=== PATIENT | female | born 1950 | race Caucasian/White ===

== ENCOUNTER 2016-12-05 12:50 | Inpatient (IN) | payer OTHER, MEDICARE ==
[2016-12-04 11:50] VITALS: BMI 30.0
[2016-12-04 20:30] VITALS: BP 146/80; PULSE 75; RESP 18
[2016-12-05] VITALS (18 sets, daily range): BP systolic 100–140; BP diastolic 63–83; PULSE 74–92; RESP 13–33; Ht 170.2 cm; Wt 90.1 kg
[~2016-12-05] VITALS: Ht 170.2 cm; Wt 90.1 kg
[2016-12-05] MEDS ORDERED: LEVO75TA5 PO (13:33)
[2016-12-05] MEDS ORDERED: LYR75 PO (13:33)
[2016-12-05] MEDS ORDERED: LOSA25TA5 PO (13:34)
[2016-12-05] MEDS ORDERED: LEFL20TA18 PO (13:35)
[2016-12-05] MEDS ORDERED: DEXA0.5T PO (13:36)
[2016-12-05] MEDS ORDERED: METO2.5T12 PO (13:37)
[2016-12-05] MEDS ORDERED: FURO20TA PO (13:38)
[2016-12-05] MEDS ORDERED: CLON-379 PO (13:38)
[2016-12-05] MEDS ORDERED: HYDROmorphONE 1 MG/ML SYG IV STA (13:39)
[2016-12-05] MEDS ORDERED: REMI IV (13:39)
[2016-12-05] MEDS ORDERED: GABA300C16 PO (13:40)
[2016-12-05] MEDS ORDERED: HYDR4TAB18 PO (13:41)
[2016-12-05] MEDS ORDERED: CYCL-319 PO (13:42)
[2016-12-05] MEDS ORDERED: ROPI0.5T2 PO (13:43)
[2016-12-05] MEDS ORDERED: GLUC-137 PO (13:44)
[2016-12-05] MEDS ORDERED: CALC-267 PO (13:46)
[2016-12-05] MEDS ORDERED: MAGN400C PO (13:48)
[2016-12-05] MEDS ORDERED: CHOL100062 PO (13:49)
[2016-12-05] MEDS ORDERED: GLUC15002 PO (13:49)
[2016-12-05] MEDS ORDERED: MULT-853 PO (13:50)
[2016-12-05] MEDS ORDERED: BUPIVACAINE 0.25%/EPI (SDV) 30 ML INJ ONE (14:26)
[2016-12-05] MEDS ORDERED: POLYMYXIN/BACITRACIN 1L IRRIG ONE (14:26)
[2016-12-05] MEDS ORDERED: SURGIFOAM POWDER 1 GM KIT ONE (14:26)
[2016-12-05] MEDS ORDERED: CA CHLORIDE 10% 10 ML SYRINGE ONE (14:26)
[2016-12-05] MEDS ORDERED: THROMBIN 5000 UNIT VIAL ONE ×2 (14:26→16:53)
--- NOTE | 2016-12-05 15:04 | HPN ---
Date/Time of Note Date/Time of Note DATE: 12/05/16 TIME: 15:04 Interval H&P Admission Note Pt. seen H&P reviewed: No system changes DONAVAN HUBBARD MD Dec 05, 2016 15:04
[2016-12-05] MEDS ORDERED: HYDROmorphONE 0.2 MG/ML PCA IV SCH (15:30)
[2016-12-05] MEDS ORDERED: DIPHENHYDRAMINE 25 MG CAP PO PRN (15:30)
[2016-12-05] MEDS ORDERED: AL HYDROX/MG HYDROX/SIMETH 30 ML CUP PO PRN (15:30)
[2016-12-05] MEDS ORDERED: ACETAMINOPHEN 325 MG TAB PO PRN (15:30)
[2016-12-05] MEDS ORDERED: CEPASTAT LOZENGE MT PRN (15:30)
[2016-12-05] MEDS ORDERED: CYCLOBENZAPRINE 10 MG TAB PO PRN ×2 (15:30→21:58)
[2016-12-05] MEDS ORDERED: HYDROmorphONE 1 MG/ML SYG IV PRN (15:30)
[2016-12-05] MEDS ORDERED: BISACODYL 10 MG SUPP PR PRN (15:30)
[2016-12-05] MEDS ORDERED: DIPHENHYDRAMINE 50 MG INJ IV PRN ×2 (15:30→17:00)
[2016-12-05] MEDS ORDERED: ONDANSETRON 4 MG INJ IV PRN ×2 (15:30→17:00)
[2016-12-05] MEDS ORDERED: NALOXONE (0.4 MG/ML) INJ IV PRN (15:30)
[2016-12-05] MEDS ORDERED: PROPOFOL 20 ML ONE (15:36)
[2016-12-05] MEDS ORDERED: SUCCINYLCHOLINE CHLORIDE 100 MG/5 ML SYG IV ONE (15:36)
[2016-12-05] MEDS ORDERED: LIDOCAINE 2% (SDV) 5 ML INJ ONE (15:36)
[2016-12-05] MEDS ORDERED: ROCURONIUM 50 MG INJ ONE (15:36)
[2016-12-05] MEDS ORDERED: MIDAZOLAM 1 MG/ML 2 ML INJ ONE (15:36)
[2016-12-05] MEDS ORDERED: PHENYLephrine (100 MCG/ML) 5ML SYG ONE ×2 (15:47→16:11)
[2016-12-05] MEDS: CEFAZOLIN 1 GM/50 ML (PMX) 50 ML IVPB SCH ×2 (15:48→22:52)
[2016-12-05] MEDS ORDERED: ONDANSETRON 4 MG INJ ONE (16:06)
[2016-12-05] MEDS ORDERED: DEXAMETHASONE 4 MG/ML 1 ML INJ ONE ×2 (16:06→17:55)
[2016-12-05] MEDS ORDERED: FAMOTIDINE 20 MG INJ ONE (16:06)
[2016-12-05] MEDS ORDERED: GELATIN SIZE 100 SPONGE ONE (16:52)
[2016-12-05] MEDS ORDERED: HYDROmorphONE (0.2 MG/ML) 10ML SYG IV PRN ×3 (17:00)
[2016-12-05] MEDS ORDERED: MEPERIDINE 25 MG INJ IV PRN (17:00)
[2016-12-05] MEDS ORDERED: PROCHLORPERAZINE 10 MG INJ IV PRN (17:00)
[2016-12-05] MEDS ORDERED: FENTAnyl 50 MCG/ML VIAL IV PRN ×2 (17:00)
--- NOTE | 2016-12-05 17:22 | RADRPT ---
PROCEDURE: XR Lumbar Spine one view. CLINICAL INDICATION: Low back pain. Intraoperative. TECHNIQUE: Prone portable cross-table lateral. COMPARISON: No prior studies are available for comparison. FINDINGS: For the purposes of this report, the last apparent true disc level is considered to be L5-S1. Based on this, the posterior needle marker is are present at L5 and S2. In addition, pedicle screws are present at L4 and L5. IMPRESSION: 1. Intraoperative imaging as described above. RPTAT: QQ .Ildefonso Soto MD, MD Date Time Electronically viewed and signed by .Ildefonso Soto MD, on 12/05/2016 17:22 .R/
--- NOTE | 2016-12-05 17:23 | RADRPT ---
PROCEDURE: XR Lumbar Spine one view. CLINICAL INDICATION: Low back pain. Intraoperative. TECHNIQUE: Prone portable cross-table lateral. COMPARISON: Prior study done earlier the same day. FINDINGS: For the purposes of this report, the last apparent true disc level is considered to be L5-S1. Based on this, the posterior surgical instrument is present overlying the L5-S1 level. In addition, pedic le screws are present at L4 and L5. IMPRESSION: 1. Intraoperative imaging as described above. RPTAT: QQ .Ildefonso Soto MD, MD Date Time Electronically viewed and signed by .Ildefonso Soto MD, MD on 12/05/2016 17:22 .R/
[2016-12-05] MEDS ORDERED: FENTAnyl 50 MCG/ML VIAL ONE ×2 (17:27→17:50)
[2016-12-05] MEDS ORDERED: TRIAMCINOLONE ACET 40 MG/ML INJ ONE (17:40)
[2016-12-05] MEDS ORDERED: HYDROmorphONE 2 MG/ML SYG ONE (17:45)
[2016-12-05] MEDS ORDERED: ESMOLOL 10 ML ONE (17:46)
[2016-12-05] MEDS ORDERED: NEOSTIGMINE 3 MG/3 ML SYRINGE ONE (18:11)
[2016-12-05] MEDS ORDERED: GLYCOPYRROLATE 1 MG INJ ONE (18:11)
[2016-12-05] MEDS ORDERED: BACITRACIN 0.9 GM OINT ONE (18:34)
[2016-12-05] MEDS: FENTAnyl 50 MCG/ML VIAL IV PRN ×2 (19:14→19:28)
[2016-12-05] MEDS: D5W-0.45 NACL + KCL 20 MEQ 1,000 ML IV SCH (21:27)
[2016-12-05] MEDS: PREGABALIN 75 MG CAP PO SCH (22:22)
[2016-12-05] MEDS: DOCUSATE SODIUM 100 MG CAP PO SCH (22:22)
[2016-12-05] MEDS ORDERED: ROPINIROLE 0.25 MG TAB PO SCH (22:30)
[2016-12-05] MEDS ORDERED: LOSARTAN 25 MG TAB PO SCH (22:30)
[2016-12-05] MEDS ORDERED: GABAPENTIN 300 MG CAP PO SCH (22:30)
--- NOTE | 2016-12-05 23:49 | OPR ---
DATE OF OPERATION: 12/05/2016 PREOPERATIVE DIAGNOSES: 1. History of L4-5 fusion. 2. L5-S1 disk herniation with inferior migration. 3. Radiculopathy and weakness. POSTOPERATIVE DIAGNOSES: 1. History of L4-5 fusion. 2. L5-S1 disk herniation with inferior migration. 3. Radiculopathy and weakness. OPERATION PERFORMED 1. Left L5 hemilaminotomy. 2. Left S1 hemilaminotomy. 3. Left L5-S1 microdiskectomy. 4. Lateral localizing film x2. 5. Use of operative microscope. 6. Intraoperative neuro monitoring (2 hours). 7. Epidural injection via catheter. PRIMARY SURGEON: Avinash Lane MD LEAD BURNER SUPERVISOR: WILLIS Carty NEED FOR RESIDENTIAL REAL ESTATE AGENT: During this spinal surgical procedure, my insurance administrative assistant was used to retrac t and protect the spinal nerves and dural sac. My insurance administrative assistant also employed the suction catheters to evacuate blood from the surgical field to improve visualization of the neural structures. The kristen tant was medically necessary to facilitate the completion of the surgery in a safe and expeditious lora. State of [place] regulations, as well as hospital bylaws, preclude the use of non-license d health care personnel, such as operating room technicians, to perform these functions. FINDINGS: Neuromonitoring at the start of the case revealed left L5 amplitude down 30%, left S1 amp litude down 50%. At the end of the case, nerve signals returned to normal. The patient had a herni ated disk. This had migrated inferior to the S1 pedicle and was within the axilla. The disk materi al itself looked like disintegrated disk and possibly some posterior S1 bone. ESTIMATED BLOOD LOSS: Less than 40 mL DRAINS: None. SPECIMENS: Disk was sent to pathology. COMPLICATIONS OF PROCEDURES: None. ANESTHESIOLOGIST: Dr. Zee Live TYPE OF ANESTHESIA: General. INDICATIONS FOR PROCEDURE: This is a 66-year-old female with lumbosacral radiculopathy in the setti ng of disk extrusion. She had failed nonoperative measures, therefore, I recommended proceeding wit h the above-mentioned surgery. Preoperatively, we discussed the risks, benefits, and alternatives. She understood and wished to proceed. DESCRIPTION OF PROCEDURE IN DETAIL: The patient was identified in the preoperative holding area, [facility], taken to the operating room, where she was successfully placed under general a nesthesia by Dr. Live. Neuromonitoring leads were placed, sequential compressive devices were appli ed. Neuromonitoring was utilized during the procedure for 2 hours to include SSEP, MEP, and EMG. T his was performed by [employer]. Start time was 4:00 p.m.; closure time was 6:00 p.m. The patient was placed in downward turned prone position over a Luke frame. All bony prominences were well padded. The back was prepped and draped in usual sterile fashion. Spinal needles were pl aced to confirm the correct levels. Next, I took a lateral film. I then injected the skin, subcuta neous tissue, and paraspinal musculature with 0.25% Marcaine and epinephrine. Incision was then mad e over the L5-S1 level. Incision was taken down to the dorsal fascia, which was incised with Bovie cautery. I then subperiosteally dissected the left L5 and S1 lamina. The Alejandra retractor was plac ed, and the Kerrison was placed in what was felt to be the L5 lamina and repeat lateral films obtain ed to confirm the correct levels. Once this was confirmed, the microscope was brought in. A left-s ided hemilaminotomy was performed at L5. A left-sided hemilaminotomy was performed at S1. This hem ilaminotomy at S1 was beyond what was required in order to perform a diskectomy as the herniation mi grated inferior to the S1 pedicle and therefore went down to the level below; therefore, the hemilam inotomy had to be performed at both levels. I removed the ligamentum flavum. I identified the S1 n erve root past the pedicle of S1. Once this was done, I identified the axilla. Here, I found a her niated disk. I made an incision through the wall of the herniation in the axilla. Here, I encounte red disintegrated disk which almost looked like ground up bone. I curetted this out and used suctio n to remove this. I spent at least an hour in order to make sure that this was completely cleaned o ut. This had extended beyond midline to the right side, which I worked on. I did a thorough diskec andrew here until I saw the back of the S1 vertebral body. Next, I identified the annulus and my assi stant retracted the neural elements medially. I then made an annulotomy and did further diskectomy work. Again, I spent quite a bit of time making sure the nerve root was completely free, and once t his was done, nerve signals returned to normal. I then irrigated the wound copiously. Hemostasis a chieved with FloSeal and bipolar cautery and Gelfoam and thrombin. The wound was irrigated again. The Valsalva maneuver was performed, and there was no leak of CSF. Due to the herniation and the complexity of the case, an additional hour of surgical time was requir ed in order to complete the procedure. Next, I passed an epidural catheter through which I injected 100 mcg of fentanyl. I then injected 0 .5 mL of Kenalog 40 on to the nerve root given the significant manipulation that I performed. I the n had the anesthesiologist draw peripheral blood, and the blood was spun down using the [employer] ice. I then took the platelet-poor plasma and mixed this with thrombin and injected this over the d ura for hemostatic purposes. The retractors were removed. I closed the deep fascia with #1 Vicryl stitch. I closed the subcutaneous tissue with a 2-0 Vicryl stitch. A 4-0 Monocryl closure was then performed. Dermabond was then applied. The patient was then awakened from anesthesia and taken to the recovery room in stable condition. Lap, sponges, and instrument counts were correct x2. There were no apparent complications during the procedure. The patient will be admitted to the [facility] for routine postoperative care to include pain c ontrol, neurovascular checks, antibiotics, and physical therapy. Dictated By: AVINASH AMAYA/ISHAN Conf#: [id number] DID#: [id number] CC: HELIO PICKARD;*EndCC*
[2016-12-06 00:01] VITALS: BP 149/70; PULSE 81; RESP 18
[2016-12-06 01:00] VITALS: BP 135/72; PULSE 78; RESP 18
[2016-12-06] MEDS: D5W-0.45 NACL + KCL 20 MEQ 1,000 ML IV SCH ×2 (01:04→06:31)
[2016-12-06 05:59] VITALS: BP 123/69; PULSE 73; RESP 18
[2016-12-06] MEDS ORDERED: PANTOPRAZOLE 40 MG INJ IV SCH (06:00)
[2016-12-06] MEDS: CEFAZOLIN 1 GM/50 ML (PMX) 50 ML IVPB SCH (06:31)
[2016-12-06] MEDS ORDERED: LEVOTHYROXINE 75 MCG TAB PO SCH (07:00)
[2016-12-06 07:54] VITALS: BP 113/63; RESP 18
[2016-12-06] MEDS ORDERED: LEFLUNOMIDE 10 MG TAB PO SCH (09:00)
[2016-12-06] MEDS ORDERED: MAGNESIUM OXIDE 400 MG TAB PO SCH (09:00)
[2016-12-06] MEDS ORDERED: FUROSEMIDE 20 MG TAB PO SCH (09:00)
[2016-12-06] MEDS ORDERED: MULTIVITAMINS THERAPEUTIC TAB PO SCH (09:00)
[2016-12-06] MEDS ORDERED: CHOLECALCIFEROL 1,000 UNIT TAB PO SCH (09:00)
[2016-12-06] MEDS ORDERED: METOLAZONE 2.5 MG TAB PO SCH (09:00)
[2016-12-06 09:22] LABS: BASOPHILS % 0.2 % (0.0-2.0); HEMATOCRIT 36.6 % (37.0-47.0); LYMPHOCYTES # 1.3 10^3/ul (0.8-2.9); LYMPHOCYTES % 12.8 % (15.0-51.0); MEAN CORPUSCULAR HEMOGLOBIN 30.2 pg (29.0-33.0); MEAN CORPUSCULAR HGB CONC 32.9 g/dl (32.0-37.0); MEAN CORPUSCULAR VOLUME 91.9 fl (82.0-101.0); MEAN PLATELET VOLUME 7.5 fl (7.4-10.4); MONOCYTE # 0.4 10^3/ul (0.3-0.9); MONOCYTES % 3.9 % (0.0-11.0); NEUTROPHIL # 8.7 10^3/ul (1.6-7.5); NEUTROPHILS % 83.1 % (39.0-77.0); PLATELET COUNT 243 10^3/UL (140-440); RED BLOOD COUNT 3.98 10^6/ul (4.20-5.40); RED CELL DISTRIBUTION WIDTH 14.3 % (11.5-14.5); UNCORRECTED WBC 10.5 10^3/ul (4.8-10.8); WHITE BLOOD COUNT 10.5 10^3/ul (4.8-10.8)
[2016-12-06 09:27] LABS: CONDITION 1
[2016-12-06 09:32] LABS: POTASSIUM 4.6 mmol/L (3.5-5.1)
[2016-12-06 09:34] LABS: ALBUMIN/GLOBULIN RATIO 1.03; BILIRUBIN,INDIRECT 0.1 mg/dl (0-1.1); BILIRUBIN,TOTAL 0.1 mg/dl (0.2-1.3); CREATININE 0.68 mg/dl (0.44-1.00); TOTAL PROTEIN 5.9 g/dl (6.1-8.1)
[2016-12-06 09:35] LABS: CALCIUM 8.6 mg/dl (8.4-10.2); MAGNESIUM 2.1 mg/dl (1.7-2.5)
--- NOTE | 2016-12-06 09:36 | CONS ---
DATE OF ADMISSION: 12/05/2016 DATE OF CONSULTATION: MEDICAL CONSULTATION Thank you, Dr. Lane, for asking me to participate in the medical management of this patient. REASON FOR CONSULTATION: To manage the patient's rheumatoid arthritis, hypertension, and peripheral neuropathy. HISTORY OF PRESENT ILLNESS: This 66-year-old female was having low back pain with radiation down he r left leg. The patient had undergone a fusion surgery in 2011. She was having pain with weakness since early October 2016. She underwent surgery yesterday by Dr. Lane which included a left L 5 hemilaminectomy, left S1 hemilaminectomy, and a left L5-S1 microdiskectomy. The patient tolerated the procedure well. The patient now says that the pain in her left leg is gone. PAST MEDICAL HISTORY: The patient has the following past medical history 1. Autoimmune disorder. 2. Back pain. 3. Rheumatoid arthritis. 4. Hypertension. 5. Peripheral neuropathy. CURRENT MEDICATIONS: Include the following 1. Lyrica 75 mg twice a day. 2. Levothyroxine 75 mcg a day. 3. Losartan 25 mg once a day. 4. Leucinimide 20 mg twice a day. 5. Clonidine 0.1 p.r.n. high blood pressure. 6. She does take supplements. ALLERGIES: 1. TALWIN. 2. PERCODAN 3. PERCOCET. PAST SURGICAL HISTORY: Remarkable for L4-L5 decompression surgery in 2011, left ACL surgery, hyster ectomy, right hand surgery, kidney reconstruction on the right, tonsillectomy, right foot fusion selam roberto. SOCIAL HISTORY: The patient is retired and . She is a homemaker. She does drink alcohol so cially. PHYSICAL EXAMINATION: GENERAL: At this time reveals a well-developed female in no apparent distress. VITAL SIGNS: Temperature 97.9, pulse of 76, respirations 18, blood pressure 113/63, O2 saturation 9 7% on 2 liter nasal cannula. HEENT: Head normocephalic. EYES: Extraocular muscles intact. NOSE AND MOUTH: Normal. NECK: Supple. No neck vein distention. LUNGS: Clear to auscultation. HEART: Regular rhythm. No murmurs, gallops, or rubs. ABDOMEN: Soft, nontender. EXTREMITIES: No peripheral edema. IMPRESSION: This patient is now 1 day postoperative surgery. She is feeling well. She does have a history of hypertension; however, her blood pressure is under good control at this time. I will ma nage the patient's hypertension, rheumatoid arthritis, and peripheral neuropathy. PLAN: 1. Resume some routine medications. 2. Check labs today. 3. Postop lumbar spine surgery protocol. 4. I will follow the patient along with you medically. Dictated By: NEVILLE MATTHEW MD, ND/ISHAN Conf#: [id number] DID#: [id number]
[2016-12-06] MEDS: DOCUSATE SODIUM 100 MG CAP PO SCH (09:49)
[2016-12-06] MEDS: PREGABALIN 75 MG CAP PO SCH (09:50)
[2016-12-06] MEDS: HYDROmorphONE 4 MG TAB PO PRN ×2 (09:51→14:37)
--- NOTE | 2016-12-06 17:02 | DS ---
DATE OF ADMISSION: 12/05/2016 DATE OF DISCHARGE: 12/06/2016 ADMITTING DIAGNOSIS: Disk herniation. DISCHARGE DIAGNOSIS: Disk herniation. PROCEDURE: Patient taken to the operating room on 12/05/2016 and underwent lumbar diskectomy. HOSPITAL COURSE: The patient was admitted [facility] after undergoing above procedure. Her postoperative course was uncomplicated. By postoperative day 1, she was deemed stable for discharg e with followup arranged with the undersigned. Dictated By: DONAVAN AMAYA/ISHAN Conf#: [id number] DID#: [id number]
[2016-12-06] MEDS ORDERED: LOSARTAN 25 MG TAB PO SCH (21:00)
[2016-12-06] MEDS ORDERED: ROPINIROLE 0.25 MG TAB PO SCH ×2 (21:00)
[2016-12-07] MEDS ORDERED: PANTOPRAZOLE (EC) 40 MG TAB PO SCH (06:00)
== END 2016-12-06 15:35 | disposition home or self-care (01) | DRG 520 ==
LOC: REC 12:50 → MS1 20:28
PROVIDERS: ADMIT Specialist; ATTEND Specialist
PROC: 0SB40ZZ Excision of Lumbosacral Disc, Open Approach (ICD-10-PCS; principal; 2016-12-05 15:30)
DX: M51.17 Intervertebral disc disorders with radiculopathy, lumbosacral region (principal); G62.9 Polyneuropathy, unspecified; I10 Essential (primary) hypertension; M06.9 Rheumatoid arthritis, unspecified; E03.9 Hypothyroidism, unspecified; Z98.1 Arthrodesis status
CPT/HCPCS: 72020; 80053; 83735; 85025; 86999; 97116; 97162; 97530; C9113; J0330; J0690; J1100; J1170; J2250; J2370; J2405; J2710; J3010; J3301; J3480

== ENCOUNTER 2017-04-15 08:20 | Inpatient (IN) | payer MEDICARE, OTHER ==
[~2017-04-15] VITALS: Ht 170.2 cm; Wt 81.9 kg
[2017-04-15] VITALS (33 sets, daily range): BP systolic 96–142; BP diastolic 66–96; PULSE 69–102; RESP 7–28; Ht 170.2 cm; Wt 81.9 kg
[~2017-04-15 08:20] MED LIST: BUPIVACAINE 0.25%/EPI (SDV) 30 ML INJ INJ ONE; CALC-267 PO; CEFAZOLIN 1 GM INJ ONE; CHOL100062 PO; CLON-379 PO; CYCL-319 PO; DEXA0.5T PO; FURO-110 PO; GABA300C16 PO; GLUC-137 PO; GLUC15002 PO; HYDR4TAB18 PO; LEFL20TA18 PO; LEVO75TA5 PO; LOSA25TA5 PO; LYR75 PO; MAGN400C PO; METO2.5T12 PO; METOPROLOL 5 MG INJ ONE; MULT-853 PO; POLYMYXIN/BACITRACIN 1L IRRIG IRR ONE; REMI IV; ROPI0.5T2 PO; THROMBIN 5000 UNIT VIAL TOP ONE
[2017-04-15] MEDS ORDERED: ROPI1TAB PO (08:59)
[2017-04-15] MEDS ORDERED: RIVA15TA PO (09:00)
[2017-04-15] MEDS ORDERED: FISH400C2 PO (09:01)
[2017-04-15] MEDS ORDERED: DOCU-144 PO (09:01)
[2017-04-15] MEDS: HYDROmorphONE 1 MG/ML SYG IV PRN ×2 (09:41→11:13)
[2017-04-15] MEDS ORDERED: CEFAZOLIN 2 GM/50 ML (PMX) 50 ML IVPB ONE (10:30)
[2017-04-15] MEDS ORDERED: LACTATED RINGER'S 1,000 ML IV* ONE (10:30)
--- NOTE | 2017-04-15 13:09 | HPN ---
Date/Time of Note Date/Time of Note DATE: 04/15/17 TIME: 13:09 Interval H&P Admission Note Pt. seen H&P reviewed: No system changes HELIO PICKARD PA-C April 15, 2017 13:09
[2017-04-15] MEDS ORDERED: SURGIFOAM POWDER 1 GM KIT ONE (13:12)
[2017-04-15] MEDS ORDERED: THROMBIN 5000 UNIT VIAL ONE (13:13)
[2017-04-15] MEDS ORDERED: BUPIVACAINE 0.25%/EPI (SDV) 30 ML INJ ONE (13:13)
[2017-04-15] MEDS ORDERED: HEPARIN 1000 UNITS/ML 10 ML INJ ONE (13:14)
[2017-04-15] MEDS ORDERED: HYDROmorphONE 1 MG/ML SYG IV PRN (13:30)
[2017-04-15] MEDS ORDERED: ACETAMINOPHEN 325 MG TAB PO PRN (13:30)
[2017-04-15] MEDS ORDERED: CEPASTAT LOZENGE MT PRN (13:30)
[2017-04-15] MEDS: CEFAZOLIN 1 GM/50 ML (PMX) 50 ML IVPB SCH ×2 (13:30→21:33)
[2017-04-15] MEDS ORDERED: BISACODYL 10 MG SUPP PR PRN (13:30)
[2017-04-15] MEDS ORDERED: AL HYDROX/MG HYDROX/SIMETH 30 ML CUP PO PRN (13:30)
[2017-04-15] MEDS ORDERED: NALOXONE (0.4 MG/ML) INJ IV PRN (13:30)
[2017-04-15] MEDS ORDERED: ONDANSETRON 4 MG INJ IV PRN ×2 (13:30→15:30)
[2017-04-15] MEDS ORDERED: ZOLPIDEM 5 MG TAB PO PRN (13:30)
[2017-04-15] MEDS ORDERED: DIPHENHYDRAMINE 50 MG INJ IV PRN ×2 (13:30→15:30)
[2017-04-15] MEDS ORDERED: CYCLOBENZAPRINE 10 MG TAB PO PRN (13:30)
[2017-04-15] MEDS ORDERED: MIDAZOLAM 1 MG/ML 2 ML INJ ONE (13:48)
[2017-04-15] MEDS ORDERED: PHENYLephrine (100 MCG/ML) 5ML SYG ONE ×2 (13:52→16:05)
[2017-04-15] MEDS ORDERED: GELATIN SIZE 100 SPONGE ONE (14:35)
[2017-04-15] MEDS ORDERED: LABETALOL HCL 20MG INJ IV PRN (15:30)
[2017-04-15] MEDS ORDERED: MEPERIDINE 25 MG INJ IV PRN (15:30)
[2017-04-15] MEDS ORDERED: hydrALAzine 20 MG INJ IV PRN (15:30)
[2017-04-15] MEDS ORDERED: FENTAnyl 50 MCG/ML VIAL IV PRN (15:30)
[2017-04-15] MEDS ORDERED: HYDROmorphONE (0.2 MG/ML) 10ML SYG IV PRN ×2 (15:30)
[2017-04-15] MEDS ORDERED: CEFAZOLIN 1 GM INJ ONE (15:39)
[2017-04-15] MEDS ORDERED: LIDOCAINE 2% (SDV) 5 ML INJ ONE (16:30)
[2017-04-15] MEDS ORDERED: ETOMIDATE 20 MG INJ ONE (16:30)
[2017-04-15] MEDS ORDERED: ROCURONIUM 50 MG INJ ONE (16:30)
[2017-04-15] MEDS ORDERED: NEOSTIGMINE 3 MG/3 ML SYRINGE ONE (16:31)
[2017-04-15] MEDS ORDERED: ONDANSETRON 4 MG INJ ONE (16:31)
[2017-04-15] MEDS ORDERED: GLYCOPYRROLATE 1 MG INJ ONE (16:31)
--- NOTE | 2017-04-15 16:36 | RADRPT ---
PROCEDURE: X-ray fluoroscopy guidance CLINICAL INDICATION: L-SPINE IN SURGERY TECHNIQUE: Fluoroscopic guidance was utilized for intraoperative procedure. COMPARISON: None. FINDINGS: Fluoroscopic guidance was utilized for intraoperative procedure. 0.1 minute of fluoroscopy time was utilized for the procedure. 3 x-ray images were obtained during the procedure. Spinal fusion hardware and intervening disk spacers are identified. No abnormal radiopaque foreign bodies are identified. IMPRESSION: X-ray fluoroscopic guidance utilized for intraoperative procedure. No abnormal radiopaque foreign bodies are identified. Please see procedure note details. RPTAT: EE Physician Rob Date Time Electronically viewed and signed by Physician oRb on 04/15/2017 16:35 RA/
[2017-04-15] MEDS ORDERED: DEXAMETHASONE 4 MG/ML 1 ML INJ ONE (16:59)
--- NOTE | 2017-04-15 17:12 | OPR ---
DATE OF OPERATION: 04/15/2017 PREOPERATIVE DIAGNOSES: 1. History of previous L4-L5 instrumented fusion. 2. History of previous L5-S1 microdiskectomy. 3. Recurrent L5-S1 disk extrusion. 4. L5-S1 chronic disk collapse. 5. Radiculopathy. POSTOPERATIVE DIAGNOSES: 1. History of previous L4-L5 instrumented fusion. 2. History of previous L5-S1 microdiskectomy. 3. Recurrent L5-S1 disk extrusion. 4. L5-S1 chronic disk collapse. 5. Radiculopathy. IMPLANTS: 1. Synthes evolution large 15 mm height with 18 degree lordosis, 40 mm with 31 mm depth. PEEK and titanium cage with 25 mm screws. 2. Fibergraft. OPERATION PERFORMED: 1. Anterior lumbar interbody fusion at L5-S1. 2. Placement of intervertebral biomechanical device at L5-S1. 3. Revision L5-S1 diskectomy. 4. Application of NuShield device. 4. Use of C-arm fluoroscopy with interpretation without radiologist present. 5. Use of allograft. 6. Intraoperative neuromonitoring (2 hours). 7. Anterior screw placement. PRIMARY SURGEON: Avinash Lane MD. COSURGEON: Matthew Bah MD SECOND CHIEF VENDOR QUALITY: WILLIS CHILDERS. NEED FOR CO-SURGEON: A co-surgeon was required in order to perform the anterior access to the spine. FINDINGS: Neuromonitoring at the start of the case revealed left L5 amplitude down 40%, bilateral S1 amplitude down 30%. The patient had significant disk collapse at L5-S1 with chronic endplate changes. There was also a left-sided recurrent disk extrusion. ESTIMATED BLOOD LOSS: Per Dr. Bah. DRAINS: None. SPECIMENS: L5-S1 disk was sent to Pathology. COMPLICATIONS OF PROCEDURES: None. ANESTHESIOLOGIST: Roque Leung MD TYPE OF ANESTHESIA: General. INDICATIONS FOR PROCEDURE: This is a 66-year-old female who presents today for evaluation. She has a history of L4-L5 instrumented fusion. She also has a history of previous L5-S1 diskectomy. She developed a recurrent disk herniation at L5-S1. There is chronic disk collapse at L5-S1 with radiculopathy. She has failed nonoperative measures and therefore is recommended that she undergo the above procedure. DESCRIPTION OF PROCEDURE IN DETAIL: The patient was identified in the preoperative holding area, given Ancef antibiotic, taken to the operating room and was successfully placed under general anesthesia. Neuromonitoring leads were placed, sequential compressive devices were applied. Rao catheter was introduced. Arterial line was placed. Neuromonitoring was utilized during the procedure for 2 hours to include SSEP, MEP, and EMG. This was performed by [employer]. Start time was 2:30 p.m., closure time was 4:30 p.m. The patient was placed on the operating table in supine position. All bony prominences were well padded. The abdomen was then prepped and draped in usual sterile fashion. Dr. Bah performed an anterior retroperitoneal approach to the spine. Once he had identified the L5-S1 disk space, I placed a bent spinal into the L5-S1 disk space. Dr. Bah will dictate the approach. I then took AP and lateral images to confirm the correct levels. Once this was confirmed, annulotomy was performed followed by radical diskectomy. I placed spreaders and opened up the disk space. I then identified the hole in the left posterolateral aspect of the disk space from the recurrent herniation. The dura was quite adherent to the annulus. This diskectomy was beyond what was required in order to perform a standard diskectomy for fusion, and this was done in order to remove the extruded fragments from an anterior approach. This added at least 40 minutes to the procedure. There was significant scar tissue behind the annulus to the dura and I had to tease this off with varying size curet. Once this was done, I was able to place 6 cup curet behind the vertebral body of S1 and scoop out calcified fragments of disk. Once I did this , nerve signal significantly improved. I then placed a probe and I could not clearly identify if there was any extruded fragments left and felt at this point , the diskectomy was completed, as was the decompression. The wound was then irrigated. Due to the chronic endplate changes, I had to use a high-speed bur to decorticate the endplates. I then placed various trials and chose the appropriate graft height. I then took the PEEK cage, within which I placed allograft and I impacted intervertebral biomechanical device into the L5-S1 level to complete the anterior lumbar interbody fusion at L5-S1. I then placed anterior screws. Once this was done, I took final AP and lateral images when I was happy with placement of the hardware and alignment of the spine. All nerve signals returned to normal. The wound was then irrigated. NuShield device was applied. Dr. Bah then proceeded to close the wound and he will dictate this separately. Lap, sponge, and instrument counts were correct x2. There were no apparent complications during the procedure. The patient will be admitted for routine postoperative care to include pain control, neurovascular checks, antibiotics and physical therapy. Postoperative CT scan and MRI will be obtained to see if there is any extruded fragments remaining to necessitate a posterior decompression and possible instrumented fusion in the future. She required BiPAP in the recovery and will be admitted to the ICU. Dictated By: AVINASH AMAYA/ISHAN Conf#: [id number] DID#: [id number] MTDD
[2017-04-15] MEDS: HYDROmorphONE 0.2 MG/ML PCA IV SCH (17:21)
--- NOTE | 2017-04-15 17:26 | RADRPT ---
PROCEDURE: XR Lumbar Spine. CLINICAL INDICATION: MISSING INSTRUMENT OR#4 TECHNIQUE: AP view of the lumbar spine was obtained. COMPARISON: Plain radiographs of the lumbar spine from 12/05/2016 FINDINGS: Posterior spinal fusion hardware is again noted at the L4-5 consisting of rods and screws as well as an intervening disk spacer. There has been interval placement of anterior cervical spine fusion hardware consisting of a plate a nd screws at L5-S1. An intervening disk spacer is also noted. There is normal osseous mineralization. There is normal alignment. No acute fracture. No subluxation of vertebral bodies. The disc spaces are otherwise normal in appearance. Surgical clips are again identified in the right lower abdominal quadrant. A tilted IVC filter is noted. The tip of an enteric tube is noted in the stomach. IMPRESSION: Interval placement of anterior cervical spine fusion hardware and intervening disk spacer at L5-S1. Posterior spinal fusion hardware at L4-5 is again noted. Enteric tube in the stomach. RPTAT: EE Physician Rob Date Time Electronically viewed and signed by Physician Rob on 04/15/2017 17:25 /
[2017-04-15] MEDS ORDERED: ALBUTEROL 0.083% (NEB) 2.5 MG/3 ML AMP ONE (17:27)
[2017-04-15] MEDS ORDERED: ALBUTEROL 0.083% (NEB) 2.5 MG/3 ML AMP HHN STA (17:30)
--- NOTE | 2017-04-15 18:25 | OPR ---
DATE OF OPERATION: 04/15/2017 PREOPERATIVE DIAGNOSIS: Degenerative disk disease L5 to S1. POSTOPERATIVE DIAGNOSIS: Degenerative disk disease L5 to S1. OPERATION: Anterior retroperitoneal exposure interbody fusion L5-S1. SURGEON: Emily Bah. CO-SURGEON: Avinash Lane M.D. ANESTHESIA: General. ESTIMATED BLOOD LOSS: 450 mL. INFORMED CONSENT: Risks, benefits, complications, alternative therapies explained to the patient an d the family, consent obtained. Risks and benefits that were explained to the patient and the famil y included but not limited to bleeding, infection, damage to bowel, damage to ureter, wound infectio n, wound dehiscence, DVT, PE and others. All questions answered. OPERATIVE TECHNIQUE: The patient was taken the operating room and prepped and draped in usual steri le fashion. I made an 8 cm incision in the left lower quadrant. The anterior rectus sheath was ope patricia using electrocautery. Retroperitoneal space was entered. Bookwalter retractor was placed retra cting the bowel contents to the right and rectus muscle to left. I dissected the left common iliac artery and vein, external iliac artery and vein. I transected the middle sacral vessels using titan ium clips. Exposure for L5 to S1 disk space was obtained by retracting the right iliac vessels to t he right and left iliac vessels to the left. We proceeded with diskectomy and placement of the new cage. Please refer to Dr. Lane's dictations for the details of that operation. After all x-ra ys were satisfactorily read by Dr. Lane, needle counts and sponge count was correct. Anterior rectus sheath was closed using a #1 Vicryl suture in running fashion, interrupted sutures in the mi ddle. The wound was irrigated again and closed in 2 layers of 2-0 Vicryl suture for subcutaneous, a nd Steri-Strips for the skin. Patient tolerated procedure well. Dictated By: EMILY SOLORIO/ISHAN Conf#: [id number] DID#: [id number]
[2017-04-15 18:38] LABS: AADO2 Arterial 230.3 mmHg (7.0-24.0); Arterial Base Excess 2.3 mmol/L (-3.0-3); Arterial COHb 0.2 % (0.0-3.0); Arterial Fraction of Oxyhgb 98.8 % (93.0-99.0); Arterial HCO3 21.6 mmol/L (22.0-26.0); Arterial MetHb 0.3 % (0.0-1.5); Arterial Total Hemglobin 12.8 g/dl (12.0-18.0); Blood Gas IEPAP 18/8; MODE MASK - BIPAP
[2017-04-15] MEDS: D5W-0.45 NACL + KCL 20 MEQ 1,000 ML IV SCH ×2 (18:50→23:10)
--- NOTE | 2017-04-15 18:58 | RADRPT ---
PROCEDURE: XR Chest. CLINICAL INDICATION: s/p surgery, SOB TECHNIQUE: Single frontal view of the chest was obtained. COMPARISON: None. FINDINGS: The heart and mediastinum are within normal limits. The lungs are clear. The thoracic aorta is tortuous. There is no significant pleural effusion or pneumothorax. There are surgical clips projecting over the epigastrium, to the right of midline. IMPRESSION: No acute disease. RPTAT: EE Johnathon Gallo Physician Date Time Electronically viewed and signed by Johnathon Gallo Physician on 04/15/2017 18:57 RA/
[2017-04-15 19:09] LABS: ADD SCAN DIFF NO
[2017-04-15 19:10] LABS: BASOPHILS % 0.3 % (0.0-2.0); EOSINOPHILS # 0.1 10^3/ul (0.0-0.5); EOSINOPHILS % 0.5 % (0.0-7.0); HEMATOCRIT 38.3 % (37.0-47.0); HEMOGLOBIN 12.4 g/dl (12.0-16.0); LYMPHOCYTES # 1.7 10^3/ul (0.8-2.9); LYMPHOCYTES % 16.1 % (15.0-51.0); MEAN CORPUSCULAR HEMOGLOBIN 29.5 pg (29.0-33.0); MEAN CORPUSCULAR HGB CONC 32.4 g/dl (32.0-37.0); MEAN CORPUSCULAR VOLUME 91.2 fl (82.0-101.0); MEAN PLATELET VOLUME 9.7 fl (7.4-10.4); MONOCYTE # 0.4 10^3/ul (0.3-0.9); NEUTROPHILS % 78.7 % (39.0-77.0); PLATELET COUNT 230 10^3/UL (140-415); RED CELL DISTRIBUTION WIDTH 14.9 % (11.5-14.5); WHITE BLOOD COUNT 10.2 10^3/ul (4.8-10.8)
--- NOTE | 2017-04-15 19:12 | CONS ---
DATE OF ADMISSION: 04/15/2017 DATE OF CONSULTATION: 04/15/2017 TYPE OF CONSULTATION: Postoperative medical. Dr. Lane, Thank you very much for allowing me to evaluate this 66-year-old female who just underwent L5-S1 ant erior lumbar fusion with allograft. HISTORICAL EVENTS: As you well know, this patient did undergo surgery for herniated disk and underw ent fusion in 2011, had recurrent back pain and weakness of the left lower extremity and underwent a n L5-S1 decompression and microdiskectomy in 11/2016. She did well for several months and had recur rence of pain with worsening left leg sciatica. MRI revealed a large recurrent herniation, and she was admitted for surgical intervention. It was after her evaluation in recovery that she was transf erred to the ICU requiring BiPAP. Presently she admits to shortness of breath but has no chest pain , has mild abdominal pain. PAST MEDICAL HISTORY: Includes: 1. History of DVTs bilateral, having been on Xarelto and having had an IVC filter placed preop. 2. History of Teresita thyroiditis 3. Hypertension. 4. History of hypercalcemia. 5. History of peripheral neuropathy. 6. Prior breast lumpectomy. 7. Hysterectomy. 8. Left knee surgery. 9. Remote history of kidney surgery. SOCIAL HISTORY: . Does not smoke, socially drinks wine. FAMILY HISTORY: Positive for uterine cancer and coronary disease. MEDICATIONS: 1. Leflunomide 20 mg per day. 2. Remicade 100 per day. 3. Lasix 20 mg per day. 4. Lyrica 150 mg b.i.d. 5. Losartan 50 mg per day. 6. Levothyroxine 75 mcg per day. 7. Ropinirole 0.25 mg 3 tablets at bedtime. 8. ProAir as needed. ALLERGIES: INCLUDE: 1. PERCOCET. 2. PERCODAN. 3. SULFA. 4. POLLEN. PHYSICAL EXAMINATION: GENERAL: Anxious female. BiPAP in place. VITAL SIGNS: BP 128/80, pulse 98, respirations 20, she was afebrile. NECK: No JVD. LUNGS: Reduced breath sounds without rales, wheezes or rhonchi. HEART: Rhythm regular. No murmur. No third or fourth sound. ABDOMEN: Slight distension and tender. EXTREMITIES: No edema, no calf tenderness. NEUROLOGIC: No lateralizing motor weakness. IMPRESSION: Postoperative lumbar back surgery with now tachypnea and need for BiPAP. Cause of this is unclear. Aspiration must be considered. Doubt PE or congestive heart failure. PLAN: Chest x-ray, EKG, troponin, Pulmonary to see and will follow. Dictated By: SADIE BOYLE/ISHAN Conf#: [id number] DID#: [id number]
[2017-04-15 19:29] LABS: ALANINE AMINOTRANSFERASE 52 IU/L (13-69); ALBUMIN 3.6 g/dl (3.3-4.9); ALBUMIN/GLOBULIN RATIO 1.63; ALKALINE PHOSPHATASE 81 IU/L (42-121); ANION GAP 6 (8-16); ASPARTATE AMINO TRANSFERASE 44 IU/L (15-46); BILIRUBIN,INDIRECT 0.5 mg/dl (0-1.1); BILIRUBIN,TOTAL 0.5 mg/dl (0.2-1.3); BLOOD UREA NITROGEN 17 mg/dl (7-20); CALCIUM 8.6 mg/dl (8.4-10.2); CARBON DIOXIDE 26 mmol/L (21-31); CHLORIDE 107 mmol/L (97-110); CREATININE 0.78 mg/dl (0.44-1.00); GLUCOSE 169 mg/dl (70-220); MAGNESIUM 1.7 mg/dl (1.7-2.5); PHOSPHORUS 3.1 mg/dl (2.5-4.9); POTASSIUM 3.1 mmol/L (3.5-5.1); SODIUM 136 mmol/L (135-144); TOTAL PROTEIN 5.8 g/dl (6.1-8.1)
[2017-04-15 19:43] LABS: TROPONIN-I < 0.012 ng/ml (0.00-0.12)
[2017-04-15] MEDS ORDERED: ALPRAZOLAM 0.5 MG TAB PO PRN (20:00)
[2017-04-15] MEDS: ROPINIROLE 1 MG TAB PO SCH (20:50)
[2017-04-15] MEDS: PREGABALIN 75 MG CAP PO SCH (20:51)
[2017-04-15] MEDS: LOSARTAN 25 MG TAB PO SCH (20:51)
[2017-04-15] MEDS: DOCUSATE SODIUM 100 MG CAP PO SCH (20:51)
[2017-04-15] MEDS ORDERED: PREGABALIN 75 MG CAP PO SCH (21:00)
[2017-04-16] VITALS (25 sets, daily range): BP systolic 88–137; BP diastolic 56–77; PULSE 80–97; RESP 6–20
[2017-04-16] MEDS: CEFAZOLIN 1 GM/50 ML (PMX) 50 ML IVPB SCH ×2 (05:22→14:07)
[2017-04-16 06:12] LABS: ADD SCAN DIFF NO
[2017-04-16 06:15] LABS: BASOPHILS % 0.2 % (0.0-2.0); HEMOGLOBIN 11.1 g/dl (12.0-16.0); LYMPHOCYTES # 0.9 10^3/ul (0.8-2.9); LYMPHOCYTES % 9.3 % (15.0-51.0); MEAN CORPUSCULAR HEMOGLOBIN 29.1 pg (29.0-33.0); MEAN CORPUSCULAR HGB CONC 31.7 g/dl (32.0-37.0); MEAN CORPUSCULAR VOLUME 91.6 fl (82.0-101.0); MEAN PLATELET VOLUME 10.5 fl (7.4-10.4); MONOCYTE # 0.5 10^3/ul (0.3-0.9); MONOCYTES % 5.4 % (0.0-11.0); NEUTROPHIL # 8.4 10^3/ul (1.6-7.5); NEUTROPHILS % 84.5 % (39.0-77.0); PLATELET COUNT 227 10^3/UL (140-415); RED BLOOD COUNT 3.82 10^6/ul (4.20-5.40); RED CELL DISTRIBUTION WIDTH 15.2 % (11.5-14.5)
[2017-04-16] MEDS: LEVOTHYROXINE 75 MCG TAB PO SCH (06:21)
[2017-04-16 06:36] LABS: CALCIUM 8.6 mg/dl (8.4-10.2); CREATININE 0.75 mg/dl (0.44-1.00); MAGNESIUM 1.7 mg/dl (1.7-2.5); POTASSIUM 4.1 mmol/L (3.5-5.1)
--- NOTE | 2017-04-16 07:40 | RADRPT ---
PROCEDURE: XR Chest. CLINICAL INDICATION: Chest pain TECHNIQUE: Single frontal view of the chest was obtained. COMPARISON: Yesterday FINDINGS: The heart is within normal limits. The thoracic aorta is calcified. The lungs are clear. There is no pleural effusion or pneumothorax. RPTAT: AA IMPRESSION: No acute disease. Calcified aorta consistent with atherosclerotic disease. .Herbie Lambert MD, MD Date Time Electronically viewed and signed by .Herbie Lambert MD, on 04/16/2017 07:40 .S/
--- NOTE | 2017-04-16 08:11 | CONS ---
Date/Time of Note Date/Time of Note DATE: 04/16/17 TIME: 08:09 Assessment/Plan Assessment/Plan Additional Assessment/Plan 1. Pulmonary status now nl, unclear to me why she needed BIPAP, CXR and oxygen sat noted. 2. Stable post op lumbar laminectomy 3. BP is nl 4. Hx RA, stable 5. Hx DVT, filter in place 6. Will transfer to ortho floor Consultation Date/Type/Reason Admit Date/Time April 15, 2017 at 08:20 Initial Consult Date Detailed Summary Respiratory: No pleuritic pain, No shortness of breath Cardiovascular: No chest pain Gastrointestinal: no complaints Genitourinary: no complaints, other (maria in place) Musculoskeletal: back pain (is mild) Exam/Review of Systems Vital Signs Vitals Vital Signs Date Time Temp Pulse Resp B/P Pulse Ox O2 Delivery O2 Flow Rate FiO2 04/16/17 07:00 97.8 83 11 98/69 95 Nasal Cannula 04/16/17 04:30 3.0 04/15/17 18:15 80 Intake and Output 04/15/17 04/15/17 04/16/17 15:00 23:00 07:00 Intake Total 2210 ml 750 ml Output Total 900 ml 250 ml Balance 1310 ml 500 ml Exam Neck: No jvd Respiratory: clear to auscultation Cardiovascular: regular rate and rhythm Gastrointestinal: soft, No tender Extremities: No edema (and no calf tend) Results Result Diagram: 04/16/17 0536 04/16/17 0536 Results 24 hrs Laboratory Tests Test 04/15/17 18:28 04/15/17 19:05 04/16/17 05:36 Blood Gas Specimen Source Blood arterial Arterial Blood Date Drawn 04/15/2017 6:30:05 PM Arterial Blood pH (Temp corrected) 7.629 *H Arterial Blood pCO2 (Temp correct) 21.1 L Arterial Blood pO2 (Temp corrected) 318.0 H Arterial Blood HCO3 21.6 L Arterial Blood Base Excess 2.3 Arterial Blood Oxygen Saturation 99.3 H Neville Test N/A Arterial Blood Gas Puncture Site Right Brachial Arterial Blood Carboxyhemoglobin 0.2 Arterial Blood Methemoglobin 0.3 Blood Gas A-a O2 Differential 230.3 H Oxyhemoglobin Percent 98.8 Total Hemoglobin 12.8 Blood Gas Temperature 37.0 Blood Gas Respiration Rate 16.0 Blood Gas Actual Respiration Rate 20 Blood Gas Modality MASK - BIPAP FiO2 80.0 Blood Gas IPAP/EPAP Ratio 18/8 Blood Gas Critical Value Read Back J FRANCHESCA RN Blood Gas Notified Whom TM Blood Gas Notified Time 04/15/2017 6:38:49 PM White Blood Count 10.2 10.0 Red Blood Count 4.20 3.82 L Hemoglobin 12.4 11.1 L Hematocrit 38.3 35.0 L Mean Corpuscular Volume 91.2 91.6 Mean Corpuscular Hemoglobin 29.5 29.1 Mean Corpuscular Hemoglobin Concent 32.4 31.7 L Red Cell Distribution Width 14.9 H 15.2 H Platelet Count 230 227 Mean Platelet Volume 9.7 # 10.5 H Neutrophils % 78.7 H 84.5 H Lymphocytes % 16.1 9.3 L Monocytes % 4.0 5.4 Eosinophils % 0.5 0.0 Basophils % 0.3 0.2 Nucleated Red Blood Cells % 0.0 0.0 Neutrophils # 8.0 H 8.4 H Lymphocytes # 1.7 0.9 Monocytes # 0.4 0.5 Eosinophils # 0.1 0.0 Basophils # 0.0 0.0 Nucleated Red Blood Cells # 0.0 0.0 Sodium Level 136 134 L Potassium Level 3.1 L 4.1 Chloride Level 107 105 Carbon Dioxide Level 26 24 Anion Gap 6 L 9 Blood Urea Nitrogen 17 18 Creatinine 0.78 0.75 Glucose Level 169 232 H Calcium Level 8.6 8.6 Phosphorus Level 3.1 Magnesium Level 1.7 1.7 Total Bilirubin 0.5 Direct Bilirubin 0.00 Indirect Bilirubin 0.5 Aspartate Amino Transf (AST/SGOT) 44 Alanine Aminotransferase (ALT/SGPT) 52 Alkaline Phosphatase 81 Troponin I < 0.012 Total Protein 5.8 L Albumin 3.6 Globulin 2.20 Albumin/Globulin Ratio 1.63 Medications Medications Current Medications Potassium Chloride/Dextrose/ Sod Cl (D5-1/2ns + KCl 20 Meq) 1,000 ml @ 100 mls/ hr Q10H IV Last administered on 04/15/17t 23:10; Admin Dose 100 MLS/HR; Start 04/15/17 at 13:10 Hydromorphone HCl 0.2 mg 0.2 mg Q1H PRN IV BREAKTHROUGH PAIN; Start 04/15/17 at 13:30 Cefazolin Sodium (Ancef 1 Gm/50 ml (Pmx)) 50 ml @ 100 mls/hr Q8H IVPB Last administered on 04/16/17 05:22; Admin Dose 100 MLS/HR; Start 04/15/17 at 13:30 ; Stop 04/16/17 at 14:00 Ondansetron HCl (Zofran Inj) 4 mg Q6H PRN IV NAUSEA AND/OR VOMITING Last administered on 04/16/17 05:22; Admin Dose 4 MG; Start 04/15/17 at 13:30 Bisacodyl (Dulcolax Supp) 10 mg DAILY PRN [place] CONSTIPATION; Start 04/15/17 at 13 :30 Docusate Sodium (Colace) 100 mg BID PO Last administered on 04/15/17 20:51; Admin Dose 100 MG; Start 04/15/17 at 21:00 Al Hydrox/Mg Hydrox/Simethicone (Mag-Al Plus) 15 ml Q6H PRN PO CONSTIPATION/ DYSPEPSIA; Start 04/15/17 at 13:30 Acetaminophen (Tylenol Tab) 650 mg Q4H PRN PO [place] OR TEMP GREATER THAN 101.3F; Start 04/15/17 at 13:30 Cyclobenzaprine HCl (Flexeril) 10 mg TID PRN PO MUSCLE SPASMS; Start 04/15/17 at 13:30 Phenol (Cepastat Lozenge) 1 lozenge PRN PRN MT SORE THROAT; Start 04/15/17 at 13:30 Diphenhydramine HCl (Benadryl) 25 mg Q6H PRN IV ITCHING; Start 04/15/17 at 13: 30 Naloxone HCl (Narcan) 0.2 mg Q2M PRN IV RR 8 BREATHS/MIN OR LESS; Start at 13:30 Hydromorphone HCl (Dilaudid SUGAR HOUSE SUPERVISOR) SUGAR HOUSE SUPERVISOR to be started in PACU Q4PCA IV Last administered on 04/15/17 17:21; Admin Dose 6 MG; Start 04/15/17 at 13:30; Stop 04/17/17 at 10:00 Miscellaneous Information 1. Hold SUGAR HOUSE SUPERVISOR at 1,000... SUGAR HOUSE SUPERVISOR IV ; Start 04/15/17 at 13: 30; Stop 04/17/17 at 10:00 Hydromorphone HCl (Dilaudid) 4 mg Q6H PRN PO PAIN; Start 04/17/17 at 10:00 Cholecalciferol (Vitamin D) 1,000 unit DAILY PO ; Start 04/16/17 at 09:00 Losartan Potassium (Cozaar) 25 mg BID PO Last administered on 04/15/17 20:51; Admin Dose 25 MG; Start 04/15/17 at 21:00 Pregabalin (Lyrica) 150 mg BID PO Last administered on 04/15/17 20:51; Admin Dose 150 MG; Start 04/15/17 at 21:00 Ropinirole HCl (Requip) 1 mg TID PO Last administered on 04/15/17 20:50; Admin Dose 1 MG; Start 04/15/17 at 21:00 Alprazolam (Xanax) 0.5 mg Q6H PRN PO ANXIETY; Start 04/15/17 at 20:00 SADIE BARRAZA MD April 16, 2017 08:11
[2017-04-16 08:12] LABS: AADO2 Arterial 113.9 mmHg (7.0-24.0); Arterial Base Excess -1.9 mmol/L (-3.0-3); Arterial COHb 0.7 % (0.0-3.0); Arterial Fraction of Oxyhgb 90.7 % (93.0-99.0); Arterial HCO3 21.3 mmol/L (22.0-26.0); Arterial MetHb 0.3 % (0.0-1.5); Arterial Total Hemglobin 11.7 g/dl (12.0-18.0); MODE NASAL CANNULA
[2017-04-16] MEDS ORDERED: MAGNESIUM SULFATE 2 GM/50 ML 50 ML IVPB ONE (08:30)
[2017-04-16] MEDS: PREGABALIN 75 MG CAP PO SCH ×2 (08:43→20:34)
[2017-04-16] MEDS: DOCUSATE SODIUM 100 MG CAP PO SCH ×2 (08:43→20:34)
[2017-04-16] MEDS: CHOLECALCIFEROL 1,000 UNIT TAB PO SCH (08:44)
[2017-04-16] MEDS: LOSARTAN 25 MG TAB PO SCH ×2 (08:45→21:00)
[2017-04-16] MEDS: ROPINIROLE 1 MG TAB PO SCH ×3 (09:00→20:34)
[2017-04-16] MEDS: D5W-0.45 NACL + KCL 20 MEQ 1,000 ML IV SCH ×2 (09:05→19:10)
--- NOTE | 2017-04-16 09:54 | PN ---
Date/Time of Note Date/Time of Note DATE: 04/16/17 TIME: 09:53 Assessment/Plan Lines/Catheters IV Catheter Type (from Nrsg): Peripheral IV Rao in Place (from Nrsg): Yes Assessment/Plan Assessment/Plan s/p ALIF L5-S1 transfer to ortho floor CT and MRI L-spine pending today PT, ambulate pain control routine care Subjective 24 Hr Interval Summary pt c/o post-operative LBP Exam/Review of Systems Vital Signs Vitals Vital Signs Date Time Temp Pulse Resp B/P Pulse Ox O2 Delivery O2 Flow Rate FiO2 04/16/17 08:00 Nasal Cannula 3.0 04/16/17 07:00 97.8 83 11 98/69 95 04/15/17 18:15 80 Intake and Output 04/15/17 04/15/17 04/16/17 15:00 23:00 07:00 Intake Total 2210 ml 950 ml Output Total 900 ml 280 ml Balance 1310 ml 670 ml Exam Free Text/Dictation stable for transfer to ortho floor - 4W CT, MRI L-spine w/wo contrast pending today NVID no calf TTP/cording no CP/SOB Results Result Diagram: 04/16/17 0536 04/16/17 0536 HELIO PICKARD PA-C April 16, 2017 09:54
--- NOTE | 2017-04-16 11:42 | CONS ---
Date/Time of Note Date/Time of Note DATE: 04/16/17 TIME: 11:41 Consultation Date/Type/Reason Admit Date/Time April 15, 2017 at 08:20 Date of Consultation: April 16, 2017 Type of Consultation: Pulmonary/critical care Reason for Consultation Consultation note dictated number is [id number]. Respiratory: No pleuritic pain, No shortness of breath Cardiovascular: No chest pain Gastrointestinal: no complaints Genitourinary: no complaints, other (maria in place) Musculoskeletal: back pain (is mild) Social History Smoking Status: Former smoker Exam/Review of Systems Vital Signs Vitals Vital Signs Date Time Temp Pulse Resp B/P Pulse Ox O2 Delivery O2 Flow Rate FiO2 04/16/17 10:00 93 18 95/75 96 Nasal Cannula 04/16/17 08:00 3.0 04/16/17 07:00 97.8 04/15/17 18:15 80 Intake and Output 04/15/17 04/15/17 04/16/17 15:00 23:00 07:00 Intake Total 2210 ml 950 ml Output Total 900 ml 280 ml Balance 1310 ml 670 ml Results Result Diagram: 04/16/17 0536 04/16/17 0536 Results 24 hrs Laboratory Tests Test 04/15/17 18:28 04/15/17 19:05 04/16/17 05:36 04/16/17 07:00 Blood Gas Specimen Source Blood arterial Blood arterial Arterial Blood Date Drawn 04/15/2017 6:30:05 PM 04/16/2017 7:30:25 AM Arterial Blood pH (Temp corrected) 7.629 *H 7.450 Arterial Blood pCO2 (Temp correct) 21.1 L 31.4 L Arterial Blood pO2 (Temp corrected) 318.0 H 63.1 L Arterial Blood HCO3 21.6 L 21.3 L Arterial Blood Base Excess 2.3 -1.9 Arterial Blood Oxygen Saturation 99.3 H 91.6 L Neville Test N/A N/A Arterial Blood Gas Puncture Site Right Brachial LB Arterial Blood Carboxyhemoglobin 0.2 0.7 Arterial Blood Methemoglobin 0.3 0.3 Blood Gas A-a O2 Differential 230.3 H 113.9 H Oxyhemoglobin Percent 98.8 90.7 L Total Hemoglobin 12.8 11.7 L Blood Gas Temperature 37.0 37.0 Blood Gas Respiration Rate 16.0 Blood Gas Actual Respiration Rate 20 Blood Gas Modality MASK - BIPAP NASAL CANNULA FiO2 80.0 30.0 Blood Gas IPAP/EPAP Ratio 18/8 Blood Gas Critical Value Read Back J FRANCHESCA RN Blood Gas Notified Whom TM JLD Blood Gas Notified Time 04/15/2017 6:38:49 PM 04/16/2017 8:11:55 AM White Blood Count 10.2 10.0 Red Blood Count 4.20 3.82 L Hemoglobin 12.4 11.1 L Hematocrit 38.3 35.0 L Mean Corpuscular Volume 91.2 91.6 Mean Corpuscular Hemoglobin 29.5 29.1 Mean Corpuscular Hemoglobin Concent 32.4 31.7 L Red Cell Distribution Width 14.9 H 15.2 H Platelet Count 230 227 Mean Platelet Volume 9.7 # 10.5 H Neutrophils % 78.7 H 84.5 H Lymphocytes % 16.1 9.3 L Monocytes % 4.0 5.4 Eosinophils % 0.5 0.0 Basophils % 0.3 0.2 Nucleated Red Blood Cells % 0.0 0.0 Neutrophils # 8.0 H 8.4 H Lymphocytes # 1.7 0.9 Monocytes # 0.4 0.5 Eosinophils # 0.1 0.0 Basophils # 0.0 0.0 Nucleated Red Blood Cells # 0.0 0.0 Sodium Level 136 134 L Potassium Level 3.1 L 4.1 Chloride Level 107 105 Carbon Dioxide Level 26 24 Anion Gap 6 L 9 Blood Urea Nitrogen 17 18 Creatinine 0.78 0.75 Glucose Level 169 232 H Calcium Level 8.6 8.6 Phosphorus Level 3.1 Magnesium Level 1.7 1.7 Total Bilirubin 0.5 Direct Bilirubin 0.00 Indirect Bilirubin 0.5 Aspartate Amino Transf (AST/SGOT) 44 Alanine Aminotransferase (ALT/SGPT) 52 Alkaline Phosphatase 81 Troponin I < 0.012 Total Protein 5.8 L Albumin 3.6 Globulin 2.20 Albumin/Globulin Ratio 1.63 Medications Medications Current Medications Potassium Chloride/Dextrose/ Sod Cl (D5-1/2ns + KCl 20 Meq) 1,000 ml @ 100 mls/ hr Q10H IV Last administered on 04/15/17t 23:10; Admin Dose 100 MLS/HR; Start 04/15/17 at 13:10 Hydromorphone HCl 0.2 mg 0.2 mg Q1H PRN IV BREAKTHROUGH PAIN; Start 04/15/17 at 13:30 Cefazolin Sodium (Ancef 1 Gm/50 ml (Pmx)) 50 ml @ 100 mls/hr Q8H IVPB Last administered on 04/16/17 05:22; Admin Dose 100 MLS/HR; Start 04/15/17 at 13:30 ; Stop 04/16/17 at 14:00 Ondansetron HCl (Zofran Inj) 4 mg Q6H PRN IV NAUSEA AND/OR VOMITING Last administered on 04/16/17 05:22; Admin Dose 4 MG; Start 04/15/17 at 13:30 Bisacodyl (Dulcolax Supp) 10 mg DAILY PRN [place] CONSTIPATION; Start 04/15/17 at 13 :30 Docusate Sodium (Colace) 100 mg BID PO Last administered on 04/16/17 08:43; Admin Dose 100 MG; Start 04/15/17 at 21:00 Al Hydrox/Mg Hydrox/Simethicone (Mag-Al Plus) 15 ml Q6H PRN PO CONSTIPATION/ DYSPEPSIA; Start 04/15/17 at 13:30 Acetaminophen (Tylenol Tab) 650 mg Q4H PRN PO [place] OR TEMP GREATER THAN 101.3F; Start 04/15/17 at 13:30 Cyclobenzaprine HCl (Flexeril) 10 mg TID PRN PO MUSCLE SPASMS; Start 04/15/17 at 13:30 Phenol (Cepastat Lozenge) 1 lozenge PRN PRN MT SORE THROAT; Start 04/15/17 at 13:30 Diphenhydramine HCl (Benadryl) 25 mg Q6H PRN IV ITCHING; Start 04/15/17 at 13: 30 Naloxone HCl (Narcan) 0.2 mg Q2M PRN IV RR 8 BREATHS/MIN OR LESS; Start at 13:30 Hydromorphone HCl (Dilaudid VIDEO ENGINEER) VIDEO ENGINEER to be started in PACU Q4PCA IV Last administered on 04/15/17 17:21; Admin Dose 6 MG; Start 04/15/17 at 13:30; Stop 04/17/17 at 10:00 Miscellaneous Information 1. Hold VIDEO ENGINEER at 1,000... VIDEO ENGINEER IV ; Start 04/15/17 at 13: 30; Stop 04/17/17 at 10:00 Hydromorphone HCl (Dilaudid) 4 mg Q6H PRN PO PAIN; Start 04/17/17 at 10:00 Cholecalciferol (Vitamin D) 1,000 unit DAILY PO Last administered on 04/16/17 08:44; Admin Dose 1,000 UNIT; Start 04/16/17 at 09:00 Losartan Potassium (Cozaar) 25 mg BID PO Last administered on 04/15/17 20:51; Admin Dose 25 MG; Start 04/15/17 at 21:00 Pregabalin (Lyrica) 150 mg BID PO Last administered on 04/16/17 08:43; Admin Dose 150 MG; Start 04/15/17 at 21:00 Ropinirole HCl (Requip) 1 mg TID PO Last administered on 04/15/17 20:50; Admin Dose 1 MG; Start 04/15/17 at 21:00 Alprazolam (Xanax) 0.5 mg Q6H PRN PO ANXIETY; Start 04/15/17 at 20:00 RUBIO PASCUAL April 16, 2017 11:42
[2017-04-16] MEDS: HYDROmorphONE 0.2 MG/ML PCA IV SCH (11:43)
--- NOTE | 2017-04-16 13:27 | CONS ---
DATE OF ADMISSION: 04/15/2017 DATE OF CONSULTATION: 04/16/2017 REFERRING PHYSICIAN: Dr. Avinash Lane REASON FOR REFERRAL: Evaluation of post surgery hypoventilation. HISTORY OF PRESENT ILLNESS: Ms. Hall is a pleasant 66-year-old white lady who was admitted yesterday for L5-S1 fusion surgery for treatment of chronic sciatica involving the right lower extremity. The patient underwent surgery; however, postop, the patient did have a sort of mild hypoventilation and pulmonary consultation was requested. The patient also was evaluated by Dr. Diaz, who briefly saw the patient and recommended observation, and patient did not require any intubation or any noninvasive ventilation. This morning, the patient is doing markedly better. Denies any shortness of breath, chest pain. Complains of very minimal lower abdominal pain at the site of surgical incision. PAST MEDICAL AND SURGICAL HISTORY: 1. DVT which has being bilateral; patient on long-term anticoagulation and status post IVC filter preop for surgery. 2. Teresita's esophagitis. 3. Hypertension. 4. Hypercalcemia. 5. Neuropathy. 6. Prior breast lumpectomy. 7. Hysterectomy. 8. Left knee surgery. 9. Kidney surgery. 10. Teresita's thyroiditis with hypothyroidism. MEDICATIONS: The patient currently on REAL ESTATE INTERN Demerol pump. Outpatient, patient takes Remicade, Lasix, Lyrica, losartan, Synthroid, ropinirole, and ProAir as needed. In-hospital is getting Ancef 1 gram IV q. 8 hours, D5 and half normal saline at 50 mL per hour, magnesium on a p.r.n. basis, Xanax 0.5 mg q. 6 hours p.r.n., Flexeril 10 mg t.i.d. p.r.n., Colace 100 mg b.i.d. p.r.n., dilauded REAL ESTATE INTERN pump, Synthroid 0.075 mg a day, Cozaar 25 mg b.i.d., Zofran on a p.r.n. basis 75 mg b.i.d., Requip 1 mg t.i.d., Ambien 5 mg at bedtime p.r.n. ALLERGIES: PERCOCET, PERCODAN SULFA AND POLLEN. SOCIAL HISTORY: The patient never smoked. No history of alcohol or drug abuse. FAMILY HISTORY: She is . She has a supportive family. No history of any illnesses in the family. OCCUPATIONAL HISTORY: The patient is retired. REVIEW OF SYSTEMS: Denies any headache, visual changes, sinus symptoms, postnasal drip, dysphagia, odynophagia, sore throat, chest pain, angina, wheezing, cough. Complains of very mild lower abdominal pain. Denies any nausea, vomiting, melena, hematochezia, edema, orthopnea, PND. PHYSICAL EXAMINATION: GENERAL: Elderly woman, awake, alert, currently in no distress. VITAL SIGNS: Temperature is 98 degree Fahrenheit, blood pressure is 98/75, respiratory rate is 18 per minute, pulse 92 per minute, O2 sat 95%. HEENT: Supple neck, no JVD, no lymphadenopathy. Midline trachea. No thyromegaly. Pharynx is clear. Patient has fair dentition. Bilaterally equal pupils, reactive to light. CHEST: Clear to auscultation. HEART: S1, S2 audible. No murmurs, regular rhythm. ABDOMEN: Soft, no organomegaly. There is a lower abdominal dressing in place. Umbilicus is inverted. Bowel sounds audible. No organomegaly felt. EXTREMITIES: No peripheral edema. Pulses 1+ bilaterally. No clubbing. NEUROLOGIC: Cranial nerves are normal. There is no motor deficit. IMAGING DATA: Chest x-ray was reviewed from today which is totally clear. LABORATORY DATA: From today, sodium 134, potassium 4.1, chloride 105, bicarb 24 , glucose 232, BUN 18, creatinine 0.7. White count 10, hemoglobin 11.1, platelet count of 227. ASSESSMENT AND PLAN: 1. Patient admitted for spinal fusion surgery with mild postop hypoventilation with marked clinical improvement. 2. History of hypertension. 3. History of hypothyroidism. 4. History of peripheral neuropathy. RECOMMENDATIONS: Continue current treatment. The patient can be transferred to the medical floor. Dictated By: RUBIO PASCUAL MD AQ/ISHAN Conf#: [id number] DID#: [id number] CC: AVINASH LANE MD;*EndCC* MTDD
--- NOTE | 2017-04-16 14:07 | RADRPT ---
PROCEDURE: CT L-Spine. CLINICAL INDICATION: Calcified disk herniation. TECHNIQUE: A CT of the lumbar spine was performed on a multidetector CT scanner utilizing axial im ages from the thoracic lumbar junction through the lumbar sacral junction. Sagittal and coronal ref ormatted images were made. The CTDIvol is 33mGy and the DLP is 879 mGycm. One or more of the followi ng dose reduction techniques were used: Automated exposure control, Adjustment of the mA and/or kV a ccording to patient size, and/or use of iterative reconstruction technique. COMPARISON: Correlation lumbar spine x-ray 04/15/2017 FINDINGS: Status post anterior interbody fusion at L4-5 and L5-S1 and posterior spinal fusion L4-5. Partial interbody fusion is seen within the interbody spacers of L4-5 and L5-S1. The surgical hardware appears intact. No evidence of an acute lumbar vertebral compression fracture. L1-2: Severe left-sided disk height loss with osteophyte formation. Grade 1 retrolisthesis. A larg e circumferential disk bulge appears to cause mild spinal canal and mild bilateral foraminal narrowi ng. L2-3: Mild disk height loss. Grade 1 retrolisthesis. Moderate circumferential disk bulge with mild bilateral foraminal narrowing. L3-4: Mild disk height loss with moderate circumferential disk bulge. There is moderate bilateral f oraminal narrowing. L4-5: Surgical changes noted with artifact from the hardware obscuring detailed evaluation. Left la minectomy changes are noted. No bony spinal canal narrowing. Mild right foraminal narrowing. L5-1: Surgical changes noted with left laminectomy changes. Large 10 mm left central partially calc ified disk extrusion extends 12 mm caudal to the disk level effaces the left lateral recess and like ly impinges the traversing left S1 nerve. Moderate to severe left foraminal narrowing. Retroperitoneal surgical clips are seen. Complex mixed density structure in the presacral space taniya sures 3.7 x 3.8 x 5.1 cm (series 3 image 93). Inferior vena cava filter. Aortic atherosclerosis. IMPRESSION: Status post anterior interbody fusion at L4-5 and L5-S1 and posterior spinal fusion L4-5. Partial in terbody fusion is seen within the interbody spacers. The surgical hardware appears intact. L5-1: Large 10 mm left central partially calcified disk extrusion extends 12 mm caudal to the disk l evel effaces the left lateral recess and likely impinges the traversing left S1 nerve. Moderate to s evere left foraminal narrowing. Complex mixed density structure in the presacral space measures up to 5.1 cm. This is difficult to d iscern from the expected sigmoid colon/rectum. A developing hematoma or abscess is not excluded. I f warranted, consider contrast enhanced pelvic CT for further evaluation. See additional details in the findings. RPTAT: AA .Jerel Lr MD, MD Date Time Electronically viewed and signed by .Jerel Lr MD, MD on 04/16/2017 14:07 .T/
--- NOTE | 2017-04-16 18:13 | RADRPT ---
PROCEDURE: MRI lumbar spine with contra CLINICAL INDICATION: Followup status post anterior discectomy and lumbar intervertebral fusion at L 5-S1. TECHNIQUE: An MRI of the lumbar spine was performed on a high resolution high definition, MRI scan ner utilizing the following sequences: Sagittal and axial T1 weighted, sagittal and axial T2 weight ed, and sagittal STIR. Following uncomplicated intravenous contrast administration of 10 cc of Magne vist, postcontrast sagittal T1 and axial T1 sequences are obtained . COMPARISON: CT 04/16/2017 and lumbar spine series 04/15/2017 FINDINGS: The patient is again noted to be status post anterior discectomy and intervertebral fusion at L5-S1 with intervertebral disk spacer present. The patient is also status post more remote bipedicular po sterior fusion at L4 and L5 with intervertebral disk spacer present. The spine alignment is again r emarkable for a 2 mm degenerative retrolisthesis of L1 with respect to L2 and L2 with respect to L3. The intervertebral bodies demonstrate normal height. No acute fractures or traumatic subluxations are present. The intervertebral discs demonstrate severe disk space height loss at the L1-2 level with disk space desiccation from L1-2 through L5-S1. The conus terminates normally at the L1 level. The bilateral paravertebral soft tissues are again remarkable for a barely perceptible inferior vena cava filter at the L2-3 level. The complex fluid collection previously described in the piece sacral region is incompletely evaluated on this study. Following contrast administration, no abnormal enhancement is noted of the spine. Subtle enhancement is noted in the left L5-S1 spinal ca nal region which may reflect granulation tissue. The specific axial levels are as follows: T12 - L1: Disk desiccation is present. The central canal, subarticular recess and neural foramen a re patent. The central canal, subarticular recess, and neural foramen are patent. L1 - L2: Severe disk space height loss is present with degenerative retrolisthesis of 2 mm. A larg e broad-based bulge is present which measures 5 mm. Mild bilateral facet arthropathy and facet effu sions are present. AP canal dimension is 8 mm. This contributes to mild central canal stenosis wit h bilateral subarticular recess stenosis and mild bilateral neural foraminal stenosis. L2 - L3: Disk desiccation is present with mild 2 mm degenerative retrolisthesis. A moderate [address]-based bulge is present. Mild bilateral facet arthropathy and effusions are present. Central c anal AP dimension is 10 mm. This results in a mild central, bilateral subarticular recess stenosis and mild bilateral neural foraminal stenosis. L3 - L4: Disk desiccation is present with a moderate 4 mm broad-based bulge. AP canal dimension is 10 mm. This results in a mild central canal stenosis, bilateral subarticular recess stenosis and m oderate bilateral neural foraminal stenosis. L4 - L5: Hardware artifact from bipedicular fusion at this level with intervertebral disk spacer is noted. The patient is status post left hemilaminectomy. No evidence for significant central canal , or subarticular recess stenosis is present. Mild bilateral neural foraminal stenosis is present. L5 - S1: Left danica laminectomy changes are again noted as well as anterior discectomy and intervert ebral fusion. Intervertebral disk spacer is present. A large left subarticular recess T1 and T2 hy pointense 10 mm in AP dimension calcified disk extrusion is noted. This extends caudally 14 mm to t he S1 sacral alar level. This posteriorly displaces and abuts the left S1 and more caudal nerve ghada ts. AP canal dimension posterior to this large disk extrusion is approximately 5 mm. This results in a severe central, left subarticular recess stenosis. Adjacent intermediate signal intensity is n oted in the left portion of the subarticular recess and thecal sac on T1-weighted sequences which is intermediate on T2 and of portion enhances on postcontrast imaging. Mild bilateral facet arthropat hy is present. Moderate to severe left neural foraminal stenosis and mild right neural foraminal st enosis is present. Recommend correlation with the left S1 and more caudal radiculopathy secondary to the large left subarticular recess disk extrusion. The broad-based disk bulge contributes with t he facet arthropathy to result in a left moderate to severe neural foraminal stenosis which may cont ribute to a left L5 radiculopathy. IMPRESSION: 1. Large 10 mm AP by 14 mm superior inferior left subarticular recess calcified L5-S1 disk extrusio n. Recommend correlation with a left S1 and more caudal radiculopathy. 2. Status post anterior discectomy and intervertebral fusion and disk spacer at L5-S1. 3. Status post remote bipedicular fusion at L4 and L5 with intervertebral disk spacer and left danica laminectomy changes as noted. 4. Multilevel broad-based disk osteophyte complexes at the L1-2 through L5-S1 levels with severe ce ntral canal stenosis at L5-S1 and mild at L1-2 through L3-4. 5. Multilevel neural foraminal stenosis at the L1-2 through L5-S1 levels and correlate with respect annabella radiculopathy. RPTAT: HDC .Tara Galarza MD, Date Time Electronically viewed and signed by .Tara Galarza MD, MD on 04/16/2017 18:13 .C/
[2017-04-17 05:10] LABS: ADD SCAN DIFF NO
[2017-04-17] MEDS: D5W-0.45 NACL + KCL 20 MEQ 1,000 ML IV SCH ×3 (05:10→23:27)
[2017-04-17 05:12] LABS: BASOPHILS % 0.3 % (0.0-2.0); EOSINOPHILS # 0.1 10^3/ul (0.0-0.5); EOSINOPHILS % 0.6 % (0.0-7.0); HEMATOCRIT 30.6 % (37.0-47.0); HEMOGLOBIN 9.9 g/dl (12.0-16.0); LYMPHOCYTES # 2.7 10^3/ul (0.8-2.9); LYMPHOCYTES % 29.2 % (15.0-51.0); MEAN CORPUSCULAR HEMOGLOBIN 29.3 pg (29.0-33.0); MEAN CORPUSCULAR HGB CONC 32.4 g/dl (32.0-37.0); MEAN CORPUSCULAR VOLUME 90.5 fl (82.0-101.0); MEAN PLATELET VOLUME 10.3 fl (7.4-10.4); MONOCYTES % 11.1 % (0.0-11.0); NEUTROPHIL # 5.4 10^3/ul (1.6-7.5); NEUTROPHILS % 58.4 % (39.0-77.0); PLATELET COUNT 201 10^3/UL (140-415); RED BLOOD COUNT 3.38 10^6/ul (4.20-5.40); RED CELL DISTRIBUTION WIDTH 15.1 % (11.5-14.5); WHITE BLOOD COUNT 9.3 10^3/ul (4.8-10.8)
[2017-04-17 05:34] LABS: CALCIUM 8.1 mg/dl (8.4-10.2); CREATININE 0.66 mg/dl (0.44-1.00); MAGNESIUM 2.3 mg/dl (1.7-2.5); POTASSIUM 3.8 mmol/L (3.5-5.1)
[2017-04-17] MEDS: LEVOTHYROXINE 75 MCG TAB PO SCH (06:25)
--- NOTE | 2017-04-17 08:00 | PN ---
Date/Time of Note Date/Time of Note DATE: 04/17/17 TIME: 07:59 Assessment/Plan Lines/Catheters IV Catheter Type (from Nrsg): Peripheral IV Maria in Place (from Nrsg): Yes Assessment/Plan Assessment/Plan s/p ALIF L5-S1 D/C [employer] , D/C maria today ambulate, continue PT routine care Subjective 24 Hr Interval Summary pt c/o back pain leg is feeling better no calf pain Exam/Review of Systems Vital Signs Vitals Vital Signs Date Time Temp Pulse Resp B/P Pulse Ox O2 Delivery O2 Flow Rate FiO2 04/17/17 06:02 3.0 04/16/17 20:34 98.1 103 20 103/57 92 04/16/17 17:36 Nasal Cannula 04/15/17 18:15 80 Intake and Output 04/16/17 04/16/17 04/17/17 15:00 23:00 07:00 Intake Total 220 ml 450 ml 580 ml Output Total 375 ml 350 ml 2150 ml Balance -155 ml 100 ml -1570 ml Exam Free Text/Dictation NVID dressing C/D/I no calf TTP/cording, no LE edema noted MRI L-spine reviewed Results Result Diagram: 04/17/17 0405 04/17/17 0405 HELIO PICKARD PA-C Apr 17, 2017 08:00
[2017-04-17 08:35] VITALS: BP 115/62; RESP 18
[2017-04-17] MEDS: DOCUSATE SODIUM 100 MG CAP PO SCH ×2 (09:29→21:17)
[2017-04-17] MEDS: ROPINIROLE 1 MG TAB PO SCH ×3 (09:29→21:16)
[2017-04-17] MEDS: LOSARTAN 25 MG TAB PO SCH ×2 (09:32→21:18)
[2017-04-17] MEDS: CHOLECALCIFEROL 1,000 UNIT TAB PO SCH (09:32)
[2017-04-17] MEDS: PREGABALIN 75 MG CAP PO SCH ×2 (09:32→21:17)
[2017-04-17] MEDS ORDERED: HYDROmorphONE 4 MG TAB PO PRN (10:00)
--- NOTE | 2017-04-17 12:22 | CONS ---
Date/Time of Note Date/Time of Note DATE: 04/17/17 TIME: 12:20 Assessment/Plan Assessment/Plan Additional Assessment/Plan 1. Doing well post op lumbar laminectomy 2. Respiratory status is nl Consultation Date/Type/Reason Admit Date/Time April 15, 2017 at 08:20 Type of Consultation: Pulmonary/critical care Detailed Summary Respiratory: cough (mild and not productive, throat is sore), No shortness of breath Cardiovascular: No chest pain Gastrointestinal: other (mild abd bloating) Genitourinary: no complaints Musculoskeletal: back pain (mild-mod) Exam/Review of Systems Vital Signs Vitals Vital Signs Date Time Temp Pulse Resp B/P Pulse Ox O2 Delivery O2 Flow Rate FiO2 04/17/17 08:35 97.8 89 18 115/62 95 04/17/17 06:02 3.0 04/16/17 17:36 Nasal Cannula 04/15/17 18:15 80 Intake and Output 04/16/17 04/16/17 04/17/17 14:59 22:59 06:59 Intake Total 370 ml 500 ml 580 ml Output Total 370 ml 415 ml 2150 ml Balance 0 ml 85 ml -1570 ml Exam Neck: No jvd Respiratory: clear to auscultation Cardiovascular: regular rate and rhythm Gastrointestinal: soft Extremities: No edema (and no calf tend) Results Result Diagram: 04/17/17 0405 04/17/17 0405 Results 24 hrs Laboratory Tests Test 04/17/17 04:05 White Blood Count 9.3 Red Blood Count 3.38 L Hemoglobin 9.9 L Hematocrit 30.6 L Mean Corpuscular Volume 90.5 Mean Corpuscular Hemoglobin 29.3 Mean Corpuscular Hemoglobin Concent 32.4 Red Cell Distribution Width 15.1 H Platelet Count 201 Mean Platelet Volume 10.3 Neutrophils % 58.4 Lymphocytes % 29.2 Monocytes % 11.1 H Eosinophils % 0.6 Basophils % 0.3 Nucleated Red Blood Cells % 0.0 Neutrophils # 5.4 Lymphocytes # 2.7 Monocytes # 1.0 H Eosinophils # 0.1 Basophils # 0.0 Nucleated Red Blood Cells # 0.0 Sodium Level 141 Potassium Level 3.8 Chloride Level 115 H Carbon Dioxide Level 27 Anion Gap 3 L Blood Urea Nitrogen 14 Creatinine 0.66 Glucose Level 96 # Calcium Level 8.1 L Magnesium Level 2.3 Medications Medications Current Medications Potassium Chloride/Dextrose/ Sod Cl (D5-1/2ns + KCl 20 Meq) 1,000 ml @ 100 mls/ hr Q10H IV Last administered on 04/15/17 23:10; Admin Dose 100 MLS/HR; Start 04/15/17 at 13:10 Hydromorphone HCl (Dilaudid) 0.2 mg Q1H PRN IV BREAKTHROUGH PAIN; Start at 13:30 Ondansetron HCl (Zofran Inj) 4 mg Q6H PRN IV NAUSEA AND/OR VOMITING Last administered on 04/16/17 05:22; Admin Dose 4 MG; Start 04/15/17 at 13:30 Bisacodyl (Dulcolax Supp) 10 mg DAILY PRN [place] CONSTIPATION; Start 04/15/17 at 13 :30 Docusate Sodium (Colace) 100 mg BID PO Last administered on 04/17/17 09:29; Admin Dose 100 MG; Start 04/15/17 at 21:00 Al Hydrox/Mg Hydrox/Simethicone (Mag-Al Plus) 15 ml Q6H PRN PO CONSTIPATION/ DYSPEPSIA; Start 04/15/17 at 13:30 Acetaminophen (Tylenol Tab) 650 mg Q4H PRN PO [place] OR TEMP GREATER THAN 101.3F; Start 04/15/17 at 13:30 Cyclobenzaprine HCl (Flexeril) 10 mg TID PRN PO MUSCLE SPASMS; Start 04/15/17 at 13:30 Phenol (Cepastat Lozenge) 1 lozenge PRN PRN [place] SORE THROAT; Start 04/15/17 at 13:30 Diphenhydramine HCl (Benadryl) 25 mg Q6H PRN IV ITCHING; Start 04/15/17 at 13: 30 Naloxone HCl (Narcan) 0.2 mg Q2M PRN IV RR 8 BREATHS/MIN OR LESS; Start at 13:30 Hydromorphone HCl (Dilaudid) 4 mg Q6H PRN PO PAIN; Start 04/17/17 at 10:00 Cholecalciferol (Vitamin D) 1,000 unit DAILY PO Last administered on 04/17/17 09:32; Admin Dose 1,000 UNIT; Start 04/16/17 at 09:00 Losartan Potassium (Cozaar) 25 mg BID PO Last administered on 04/17/17 09:32; Admin Dose 25 MG; Start 04/15/17 at 21:00 Pregabalin (Lyrica) 150 mg BID PO Last administered on 04/17/17 09:32; Admin Dose 150 MG; Start 04/15/17 at 21:00 Ropinirole HCl (Requip) 1 mg TID PO Last administered on 04/17/17 09:29; Admin Dose 1 MG; Start 04/15/17 at 21:00 Alprazolam (Xanax) 0.5 mg Q6H PRN PO ANXIETY; Start 04/15/17 at 20:00 SADIE BARRAZA MD Apr 17, 2017 12:22
--- NOTE | 2017-04-17 17:41 | RADRPT ---
Vent Rate: 79 bpm RR Interval: 0 msec ME Interval: 160 msec QRS Duration: 92 msec QT Interval: 380 msec QTC Interval: 435 msec P-R-T [place]: 49 - 28 - 56 degrees Normal sinus rhythm Nonspecific T wave abnormality Abnormal ECG Electronically Signed By: Danny Thomas [id number]
[2017-04-17] MEDS: HYDROmorphONE 2 MG TAB PO PRN (19:44)
[2017-04-17 20:19] VITALS: BP 123/62; RESP 20
[2017-04-18] MEDS: HYDROmorphONE 2 MG TAB PO PRN ×2 (01:30→09:10)
[2017-04-18 05:37] LABS: ADD SCAN DIFF NO
[2017-04-18 05:50] LABS: BASOPHILS % 0.6 % (0.0-2.0); EOSINOPHILS # 0.3 10^3/ul (0.0-0.5); EOSINOPHILS % 3.6 % (0.0-7.0); HEMATOCRIT 29.5 % (37.0-47.0); HEMOGLOBIN 9.3 g/dl (12.0-16.0); LYMPHOCYTES # 2.6 10^3/ul (0.8-2.9); LYMPHOCYTES % 36.9 % (15.0-51.0); MEAN CORPUSCULAR HGB CONC 31.5 g/dl (32.0-37.0); MEAN CORPUSCULAR VOLUME 91.9 fl (82.0-101.0); MEAN PLATELET VOLUME 10.5 fl (7.4-10.4); NEUTROPHIL # 3.1 10^3/ul (1.6-7.5); NEUTROPHILS % 44.5 % (39.0-77.0); PLATELET COUNT 186 10^3/UL (140-415); RED BLOOD COUNT 3.21 10^6/ul (4.20-5.40); RED CELL DISTRIBUTION WIDTH 15.1 % (11.5-14.5)
[2017-04-18 06:41] LABS: CALCIUM 8.4 mg/dl (8.4-10.2); CREATININE 0.59 mg/dl (0.44-1.00); MAGNESIUM 2.1 mg/dl (1.7-2.5); POTASSIUM 3.6 mmol/L (3.5-5.1)
[2017-04-18] MEDS: LEVOTHYROXINE 75 MCG TAB PO SCH (06:57)
[2017-04-18 08:37] VITALS: BP 122/58; RESP 18
[2017-04-18] MEDS: DOCUSATE SODIUM 100 MG CAP PO SCH (09:08)
[2017-04-18] MEDS: LOSARTAN 25 MG TAB PO SCH (09:09)
[2017-04-18] MEDS: CHOLECALCIFEROL 1,000 UNIT TAB PO SCH (09:10)
[2017-04-18] MEDS: PREGABALIN 75 MG CAP PO SCH (09:10)
[2017-04-18] MEDS: ROPINIROLE 1 MG TAB PO SCH ×2 (09:10→13:06)
--- NOTE | 2017-04-18 09:15 | CONS ---
Date/Time of Note Date/Time of Note DATE: 04/18/17 TIME: 09:08 Assessment/Plan Assessment/Plan Chief Complaint/Hosp Course 1. She is 3 days postop a lumbar spine surgery. 2. She does have some lower extremity edema. 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 She was on Xarelto preoperatively 3. She could be discharged today if cleared by physical therapy. I did ask the nurse to check with both Dr. Bah and Dr. Lane about whether she should at some time restart Xarelto. I will be available for any questions. Problems: Consultation Date/Type/Reason Admit Date/Time April 15, 2017 at 08:20 Initial Consult Date 04/16/17 Type of Consultation: Pulmonary/critical care 24 HR Interval Summary Free Text/Dictation She has no complaints . She is now 3 days postop a lumbar spine surgery. Constitutional: improved, no complaints Exam/Review of Systems Vital Signs Vitals Vital Signs Date Time Temp Pulse Resp B/P Pulse Ox O2 Delivery O2 Flow Rate FiO2 04/18/17 08:37 97.8 93 18 122/58 91 04/18/17 02:51 2.0 04/17/17 08:00 Nasal Cannula 04/15/17 18:15 80 Intake and Output 04/17/17 04/17/17 04/18/17 15:00 23:00 07:00 Intake Total 700 ml 1350 ml Output Total 700 ml 950 ml Balance 0 ml 400 ml Exam Constitutional: alert, oriented, well developed Respiratory: clear to auscultation Cardiovascular: edema, regular rate and rhythm Musculoskeletal: nl extremities to inspection Extremities: edema Results Result Diagram: 04/18/17 0415 04/18/17 0415 Results 24 hrs Laboratory Tests Test 04/18/17 04:15 White Blood Count 7.0 # Red Blood Count 3.21 L Hemoglobin 9.3 L Hematocrit 29.5 L Mean Corpuscular Volume 91.9 Mean Corpuscular Hemoglobin 29.0 Mean Corpuscular Hemoglobin Concent 31.5 L Red Cell Distribution Width 15.1 H Platelet Count 186 Mean Platelet Volume 10.5 H Neutrophils % 44.5 Lymphocytes % 36.9 Monocytes % 14.0 H Eosinophils % 3.6 Basophils % 0.6 Nucleated Red Blood Cells % 0.0 Neutrophils # 3.1 Lymphocytes # 2.6 Monocytes # 1.0 H Eosinophils # 0.3 Basophils # 0.0 Nucleated Red Blood Cells # 0.0 Sodium Level 140 Potassium Level 3.6 Chloride Level 109 Carbon Dioxide Level 26 Anion Gap 9 # Blood Urea Nitrogen 9 Creatinine 0.59 Glucose Level 88 Calcium Level 8.4 Magnesium Level 2.1 Medications Medications Current Medications Potassium Chloride/Dextrose/ Sod Cl (D5-1/2ns + KCl 20 Meq) 1,000 ml @ 100 mls/ hr Q10H IV Last administered on 04/17/17 19:34; Admin Dose 100 MLS/HR; Start at 13:10 Hydromorphone HCl (Dilaudid) 0.2 mg Q1H PRN IV BREAKTHROUGH PAIN; Start at 13:30 Ondansetron HCl (Zofran Inj) 4 mg Q6H PRN IV NAUSEA AND/OR VOMITING Last administered on 04/16/17 05:22; Admin Dose 4 MG; Start 04/15/17 at 13:30 Bisacodyl (Dulcolax Supp) 10 mg DAILY PRN [place] CONSTIPATION; Start 04/15/17 at 13 :30 Docusate Sodium (Colace) 100 mg BID PO Last administered on 04/17/17 21:17; Admin Dose 100 MG; Start 04/15/17 at 21:00 Al Hydrox/Mg Hydrox/Simethicone (Mag-Al Plus) 15 ml Q6H PRN PO CONSTIPATION/ DYSPEPSIA; Start 04/15/17 at 13:30 Acetaminophen (Tylenol Tab) 650 mg Q4H PRN PO [place] OR TEMP GREATER THAN 101.3F; Start 04/15/17 at 13:30 Cyclobenzaprine HCl (Flexeril) 10 mg TID PRN PO MUSCLE SPASMS Last administered on 04/18/17 01:27; Admin Dose 10 MG; Start 04/15/17 at 13:30 Phenol (Cepastat Lozenge) 1 lozenge PRN PRN [place] SORE THROAT; Start 04/15/17 at 13:30 Diphenhydramine HCl (Benadryl) 25 mg Q6H PRN IV ITCHING; Start 04/15/17 at 13: 30 Naloxone HCl (Narcan) 0.2 mg Q2M PRN IV RR 8 BREATHS/MIN OR LESS; Start at 13:30 Cholecalciferol (Vitamin D) 1,000 unit DAILY PO Last administered on 04/17/17 09:32; Admin Dose 1,000 UNIT; Start 04/16/17 at 09:00 Losartan Potassium (Cozaar) 25 mg BID PO Last administered on 04/17/17 21:18; Admin Dose 25 MG; Start 04/15/17 at 21:00 Pregabalin (Lyrica) 150 mg BID PO Last administered on 04/17/17 21:17; Admin Dose 150 MG; Start 04/15/17 at 21:00 Ropinirole HCl (Requip) 1 mg TID PO Last administered on 04/17/17 21:16; Admin Dose 1 MG; Start 04/15/17 at 21:00 Alprazolam (Xanax) 0.5 mg Q6H PRN PO ANXIETY; Start 04/15/17 at 20:00 Hydromorphone HCl (Dilaudid) 4 mg Q6H PRN PO PAIN Last administered on 01:30; Admin Dose 4 MG; Start 04/17/17 at 19:33 NEVILLE MATTHEW MD Apr 18, 2017 09:15
[2017-04-18] MEDS: D5W-0.45 NACL + KCL 20 MEQ 1,000 ML IV SCH (10:39)
--- NOTE | 2017-04-18 10:50 | DS ---
DATE OF ADMISSION: 04/15/2017 DATE OF DISCHARGE: 04/18/2017 ADMITTING DIAGNOSIS: L5-S1 disk disease. DISCHARGE DIAGNOSIS: L5-S1 disk disease. PROCEDURE: The patient was taken to the operating room on 04/15/2017 and underwent lumbar fusion. HOSPITAL COURSE: The patient underwent the above surgery. After the surgery, she was placed in the ICU overnight as she required supplemental oxygen. By postoperative day 1, she did well. By 04/18, she was deemed stable for discharge with followup arranged with the undersigned. Dictated By: DONAVAN HUBBARD MD BB/ISHAN Conf#: [id number] DID#: [id number]
== END 2017-04-18 15:14 | disposition home or self-care (01) | DRG 460 ==
LOC: REC 08:20 → ICU 18:00 → MS1 04-16 16:00
PROVIDERS: ADMIT Specialist; ATTEND Specialist
PROC: 0ST40ZZ Resection of Lumbosacral Disc, Open Approach (ICD-10-PCS; 2017-04-15)
PROC: 4A11X4G Monitoring of Peripheral Nervous Electrical Activity, Intraoperative, External Approach (ICD-10-PCS; 2017-04-15)
PROC: 0SG30A0 Fusion of Lumbosacral Joint with Interbody Fusion Device, Anterior Approach, Anterior Column, Open Approach (ICD-10-PCS; principal; 2017-04-15 12:30)
DX: M51.17 Intervertebral disc disorders with radiculopathy, lumbosacral region (principal); G62.9 Polyneuropathy, unspecified; J44.9 Chronic obstructive pulmonary disease, unspecified; I10 Essential (primary) hypertension; R06.89 Other abnormalities of breathing; Z86.718 Personal history of other venous thrombosis and embolism; Z87.891 Personal history of nicotine dependence
CPT/HCPCS: 36600; 71010; 72020; 72040; 72131; 72158; 80048; 80053; 82803; 83735; 84100; 84484; 85025; 87081; 87086; 93005; 94660; 94664; 97116; 97163; 97530; C1713; J0690; J1100; J1170; J1644; J2250; J2370; J2405; J2710; J3010; J3475; J3480; J7120; V2790